=== PATIENT | male | born 1980 | race Caucasian/White ===

== ENCOUNTER 2024-08-19 11:34 | Emergency (ER) | payer OTHER ==
[~2024-08-19] VITALS: Ht 182.8 cm; Wt 81.6 kg
[2024-08-19] MEDS ORDERED: Lidocaine Hydrochloride 2% 10 ML AMP SC ONE (12:10)
[2024-08-19] MEDS ORDERED: Bacitracin Zinc/Neomycin/Pol 15 GM TUBE T ONE (12:10)
== END 2024-08-19 12:58 | disposition home or self-care (01) ==
LOC: ED 11:34
DX: S01.81XA Laceration without foreign body of other part of head, initial encounter (principal); W06.XXXA Fall from bed, initial encounter; Y93.89 Activity, other specified; Y92.89 Other specified places as the place of occurrence of the external cause; Y99.8 Other external cause status